=== PATIENT | male | born 1990 | race Caucasian/White ===

== ENCOUNTER 2016-09-19 07:55 | Emergency (ER) | payer BC ==
[~2016-09-19] VITALS: Ht 172.7 cm; Wt 81.6 kg
[2016-09-19] MEDS ORDERED: ONDANSETRON ODT 4 MG TAB.RAPDIS PO ONE (08:00)
--- NOTE | 2016-09-19 08:11 | PHYS DOC ---
Adult General Chief Complaint Chief Complaint: NAUSEA/VOMITING/DIARRHA HPI HPI This is a 26-year-old male with no known significant past medical history presents after having several hours of nausea vomiting and diarrhea. He states his last meal was around 11:30 PM yesterday night. He states around 2:30 AM he then developed significant nausea and vomiting and has had difficulty eating or drinking since that time. He denies any significant abdominal pain. He does state he has some subjective chills. He denies any blood in his vomit or stool. Patient is fully alert and oriented and in no significant distress upon my evaluation. Review of Systems Review of Systems Constitutional: Denies fever, has chills [] Eyes: Denies change in visual acuity, redness, or eye pain [] HENT: Denies nasal congestion or sore throat [] Respiratory: Denies cough or shortness of breath [] Cardiovascular: No additional information not addressed in HPI [] GI: Denies abdominal pain, has nausea, has vomiting, denies bloody stools, has diarrhea [] : Denies dysuria or hematuria [] Musculoskeletal: Denies back pain or joint pain [] Integument: Denies rash or skin lesions [] Neurologic: Denies headache, focal weakness or sensory changes [] Endocrine: Denies polyuria or polydipsia [] Current Medications Current Medications Current Medications Medications (Trade) Dose Ordered Sig/Donnie Start Time Stop Time Status Last Admin Dose Admin Ketorolac Tromethamine (Toradol Im) 60 mg 1X ONCE 09/19/16 08:15 09/19/16 08:19 DC Ondansetron HCl (Zofran Odt) 4 mg STK-MED ONCE 09/19/16 08:19 09/19/16 08:20 DC Allergies Allergies Allergies Coded Allergies Type Severity Reaction Last Updated Verified No Known Drug Allergies 09/19/16 No Physical Exam Physical Exam Constitutional: Well developed, well nourished, no acute distress, non-toxic appearance. [] HENT: Normocephalic, atraumatic, bilateral external ears normal, oropharynx moist, no oral exudates, nose normal. [] Eyes: PERRLA, EOMI, conjunctiva normal, no discharge. [] Neck: Normal range of motion, no tenderness, supple, no stridor. [] Cardiovascular:Heart rate regular rhythm, no murmur [] Lungs & Thorax: Bilateral breath sounds clear to auscultation [] Abdomen: Bowel sounds normal, soft, no tenderness, no masses, no pulsatile masses. [] Skin: Warm, dry, no erythema, no rash. [] Back: No tenderness, no CVA tenderness. [] Extremities: No tenderness, no cyanosis, no clubbing, ROM intact, no edema. [] Neurologic: Alert and oriented X 3, normal motor function, normal sensory function, no focal deficits noted. [] Psychologic: Affect normal, judgement normal, mood normal. [] Current Patient Data Vital Signs Vital Signs Date Time Temp Pulse Resp B/P Pulse Ox O2 Delivery O2 Flow Rate FiO2 09/19/16 08:35 100 20 112/72 100 Room Air 09/19/16 08:03 98 98.0 EKG EKG [] Radiology/Procedures Radiology/Procedures [] Course & Med Decision Making Course & Med Decision Making Pertinent Labs and Imaging studies reviewed. (See chart for details) This otherwise healthy 26-year-old male is likely having a foodborne illness with significant nausea and vomiting and diarrhea. Zofran and Toradol will be given. Patient will be reassessed to see if he is tolerating oral fluids. If successful, he'll be discharged with a course of Zofran with instruction to continue fluids and rest for the next 24 hours. A work note will be provided. Upon my final reassessment, the patient is starting oral fluids and will be safe to be discharged with a course of Zofran close follow-up instructions. I counseled the mother at length that his symptoms are likely gastroenteritis related and that if they continue to recur he will need formalized testing as he may have some sensitivity to gluten. Dragon Disclaimer Dragon Disclaimer This electronic medical record was generated, in whole or in part, using a voice recognition dictation system. Departure Departure Impression: Primary Impression: Nausea & vomiting Disposition: 01 HOME, SELF-CARE Admitting Physician: Other Condition: STABLE Patient Instructions: Nausea, Adult, Eycy-wr-Smys Additional Instructions: Please take your zofran as prescribed and continue to drink plenty of fluids. Rest for the next day and follow up closely with your primary doctor closely. Return to the ER if you develop any worsening of your symptoms. Scripts Ondansetron Hcl (Zofran)4 Mg Tablet4 Mg PO BID PRN NAUSEA/VOMITING #12 TAB Prov:KARLENE MORENO DO 09/19/16 KARLENE MORENO DO Sep 19, 2016 08:11
[2016-09-19] MEDS ORDERED: KETOROLAC TROMETHAMINE 60 MG/2 ML SYRINGE. IM ONE (08:15)
[2016-09-19] MEDS ORDERED: TRAZ50TA15 PO (08:17)
[2016-09-19] MEDS ORDERED: SERT25TA PO (08:17)
[2016-09-19] MEDS ORDERED: ONDANSETRON ODT 4 MG TAB.RAPDIS ONE (08:19)
[2016-09-19] MEDS ORDERED: ONDA4TAB7 PO (08:33)
[2016-09-19 08:35] VITALS: BP 112/72
== END 2016-09-19 08:52 | disposition home or self-care (01) ==
LOC: ER 07:55
DX: R11.2 Nausea with vomiting, unspecified (principal)
CPT/HCPCS: 99283; Q0162

== ENCOUNTER 2016-10-19 18:46 | Emergency (ER) | payer OTHER, BC ==
[~2016-10-19 18:46] MED LIST: ONDA4TAB7 PO; SERT25TA PO; TRAZ50TA15 PO
[2016-10-19 18:55] VITALS: BP 106/77
[2016-10-19 19:50] LABS: BILIRUBIN,URINE SMALL (NEG); GLUCOSE,URINE NEGATIVE (NEG); NITRITE,URINE NEGATIVE (NEG); PH,URINE 5.5; PROTEIN,URINE NEGATIVE (NEG-TRACE); UROBILINOGEN,URINE 0.2 mg/dL (0.2 mg/dL)
[2016-10-19 19:55] LABS: BACTERIA,URINE 0 /HPF (0-FEW); RBC,URINE 0 /HPF (0-2); SQUAMOUS EPITHELIAL CELL,UR OCC /LPF; WBC,URINE OCC /HPF (0-4)
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
[2016-10-19] MEDS ORDERED: ACET-704 PO (20:57)
[2016-10-19] MEDS ORDERED: METH-37 PO (20:57)
== END 2016-10-19 21:14 | disposition home or self-care (01) ==
LOC: ER 18:46
DX: R10.9 Unspecified abdominal pain (principal); V47.5XXA Car driver injured in collision with fixed or stationary object in traffic accident, initial encounter; Y93.I9 Activity, other involving external motion; Y92.410 Unspecified street and highway as the place of occurrence of the external cause; Y99.8 Other external cause status
CPT/HCPCS: 76775; 81001; 99285-25